=== PATIENT | female | born 1990 | race Caucasian/White ===

== ENCOUNTER 2020-08-19 19:51 | Emergency (ER) | payer BC, SELFPAY ==
--- NOTE | 2020-08-19 20:03 | PC.NURSE ---
Maria Luisa in OB aware pt is in this dept, to come monitor baby.
[2020-08-19 20:04] VITALS: BP 138/97; PULSE 95; RESP 19; TEMP 37; O2SAT 99
--- NOTE | 2020-08-19 20:07 | ED.FALL ---
HPI - Fall General Chief Complaint: Fall Stated Complaint: 24w2d preg/fall Time Seen by Provider: 08/19/20 20:07 History of Present Illness HPI Narrative: 30 yo female at 25 weeks gestation presents to the ED after a fall. She was standing on a trailer when a board broke underneath her and she fell through. SHe hit her left thigh as she fell. She does have some pain in the thigh. She also reports that her fall was stopped by her abdomen. the only thing that she is concerned about at this time is making sure that her child is okay. Related Data Home Medications Medication Instructions Recorded Confirmed No Home Medications 08/19/20 08/19/20 Allergies Allergy/AdvReac Type Severity Reaction Status Date / Time No Known Allergies Allergy Verified 08/19/20 20:16 Review of Systems Review of Systems: All systems reviewed & are unremarkable except as noted in HPI and below PMFSH Social History Social History (Updated 08/20/20 @ 20:27 by Gio Serrano MD) Smoking status: Never smoker Living arrangements: with family Exam Const: General: healthy appearing, no acute distress and alert Nutritional Appearance: well nourished Orientation/consciousness: patient oriented x3 HENMT: Head: normal to inspection Resp: Effort & Inspection: normal respiratory effort Auscultation: clear to auscultation bilaterally Cardio: Rate: regular rate Rhythm: regular rhythm GI: Other: Gravid. Mild LUQ tenderness Skin: Other: Bruising to left lateral thigh Neuro: General: patient oriented x3, moves all extremities and CN's II-XI intact bilaterally Speech: normal speech Gait exam (Neuro): Normal gait present Course Vital Signs Vital signs: Vital Signs Temperature 37.0 C 08/19/20 20:04 Pulse Rate 95 08/19/20 20:04 Respiratory Rate 19 08/19/20 20:04 Blood Pressure 138/97 H 08/19/20 20:04 Pulse Oximetry 99 08/19/20 20:04 Temperature 36.6 C 08/19/20 22:11 Pulse Rate 70 08/19/20 22:11 Respiratory Rate 16 08/19/20 22:11 Blood Pressure 122/80 08/19/20 22:11 Pulse Oximetry 99 08/19/20 22:11 MDM - Fall MDM Narrative Medical decision making narrative: SHe had minor abdominal trauma in the second trimester she needs an NST and OB clearance. OB has seen and cleared her. Medical Records Attestation: I reviewed the patient's medical records. Lab Data Attestation: I reviewed the patient's lab results. Discharge Plan Discharge Clinical Impression: Contusion of left thigh Patient Disposition: Home, Self-Care Condition: Stable Instructions: Contusion in Adults (ED) Additional Instructions: Return to the ED for vaginal bleeding. Increasing abdominal pain. Contact your OBGYN to arrange follow-up. Prescriptions: No Action No Home Medications RF: 0 Follow-up/Referrals: PHYSICIAN NOT ON STAFF,NONSTAFF [Primary Care Provider] - Discharge Date/Time: 08/19/20 22:12
--- NOTE | 2020-08-19 20:56 | PC.NURSE ---
Call placed to OB at this time, spoke with Teetee, and she said she will have her drafting supervisor call back.
[2020-08-19 21:10] VITALS: BP 115/91; PULSE 93
--- NOTE | 2020-08-19 21:15 | PC.NURSE ---
OB in room at this time with patient.
[2020-08-19 21:41] VITALS: BP 130/96; PULSE 95; RESP 16; O2SAT 98
--- NOTE | 2020-08-19 21:47 | PC.NURSE ---
Teetee from OB called to inform this nurse that the patient is cleared OB ta and the OB damage prevention coordinator stated patient is cleared and to inform the patient that if she is having any cramping or bleeding to return to the ED. ERP notifed.
[2020-08-19 22:11] VITALS: BP 122/80; PULSE 70; RESP 16; TEMP 36.6; O2SAT 99
== END 2020-08-19 22:12 | disposition home or self-care (01) ==
PROVIDERS: Emergency Provider Emergency Medicine
DX: O9A.212 Injury, poisoning and certain other consequences of external causes complicating pregnancy, second trimester (principal); S70.12XA Contusion of left thigh, initial encounter; S39.91XA Unspecified injury of abdomen, initial encounter; Z3A.25 25 weeks gestation of pregnancy; W13.8XXA Fall from, out of or through other building or structure, initial encounter
CPT/HCPCS: 99282